=== PATIENT | female | born 1985 | race American Indian/Alaskan Native ===

== ENCOUNTER 2016-10-13 13:38 | Inpatient (IN) | payer BC ==
[2016-10-13] MEDS ORDERED: Acetaminophen 325 MG Tab PO PRN (16:09)
[2016-10-13] MEDS ORDERED: Sodium Chloride 0.9% 10 ML Syringe FLUSH PRN (16:09)
--- NOTE | 2016-10-13 16:30 | PCM.LDHP ---
L&D History of Present Illness - General Date of Service: 10/13/16 Admit Problem/Dx: Patient Status Order with Admit Dx/Problem 10/13/16 16:09 Patient Status [ADT] Routine Admission Diagnosis/Problem Admission Diagnosis/Problem complications Source of Information: Patient History Limitations: Reports: No Limitations - History of Present Illness Introduction:: 31-year-old (1 set of twins) LAN 11/13/16 at estimated gestational age 35 weeks 5 days presented to labor and delivery complaining of contractions and lower abdominal pain and discomfort and low back pain no dysuria or frequency urgency patient's had a history of 2 prior sections and and has had multiple successful VBACs after her first last was for second twin baby B, GB strep is not been performed will be collected when patient returns to clinic for follow-up patient had 05/10/2005 baby weighed 2 lbs. 6 oz. emergency adopted to her sister on 10/29/2005 miscarriage at 5 weeks on 12/01/2009 41 weeks estimated gestational age normal spontaneous vaginal delivery on 01/22/1439 weeks 6 days normal spontaneous vaginal delivery on 12/23/2014 vaginal delivery at 36 weeks twin a twin B was section for distress Blood type A positive antibody screen negative, CBC hemoglobin 13.0/36.6 platelets 232,000 on 04/19/2016 negative Pap test negative HIV rubella immune GC chlamydia negative hemoglobin hematocrit 11.7/35.3 platelets 241,005/10/2016 Patient is an [place] because of distance to travel and threatened labor patient will be placed on observation status and given by mouth hydration nonstress test biophysical profile and continuous monitoring and reevaluation as indicated discussed plans with patient will also order Procardia 10 mg by mouth every 6 hours and at bedtime 2100 hrs. morphine 10 mg IM with Vistaril (hydroxyzine) 50 mg IM NST reactive Timing/Duration: Reports: hour(s): Location, : Reports: Abdomen, Lower back Severity: Moderate Pain Score: 6 Improves with: Reports: None Worsens with: Reports: None - Related Data Allergies/Adverse Reactions: Allergies Allergy/AdvReac Type Severity Reaction Status Date / Time latex Allergy Hives Verified 01/16/14 18:56 Home Medications: Home Meds Ferrous Sulfate [Slow Fe] 1 tab PO DAILY 01/21/14 [History] Pnv with Ca,No.71/Iron/Fa [ Vitamin Tablet] 1 each PO DAILY 01/21/14 [ History] Acetaminophen [Tylenol] 650 mg PO Q4H PRN #30 tablet 01/24/14 [Rx] Docusate Sodium [Colace] 100 mg PO BID PRN #20 cap 01/24/14 [Rx] Ibuprofen [Motrin] 600 mg PO Q4H PRN #30 tablet 01/24/14 [Rx] Lanolin [Lansinoh HPA] 1 applic TOP ASDIRECTED PRN #1 crm 01/24/14 [Rx] 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: Reports: , Other (See Below) (History of abnormal Pap in the past repeats normal, history of ovarian cyst history of with first ) : 6 Para: 4 (4115 (1 set twins)) LMP (Approximate): Other (See Below) - Past Surgical History Head Surgeries/Procedures: Reports: None HEENT Surgical History: Reports: Oral Surgery (2008) Cardiovascular Surgical History: Reports: None Respiratory Surgical History: Reports: None GI Surgical History: Reports: None Female Surgical History: Reports: Section (x2) Male Surgical History: Reports: None Endocrine Surgical History: Reports: None Neurological Surgical History: Reports: None Musculoskeletal Surgical History: Reports: None Oncologic Surgical History: Reports: None Dermatological Surgical History: Reports: None Social & Family History - Tobacco Use Smoking Status *Q: Never Smoker Second Hand Smoke Exposure: Yes - Alcohol Use Days Per Week of Alcohol Use: 0 - Recreational Drug Use Recreational Drug Use: No H&P Review of Systems - Review of Systems: Review Of Systems: See Below General: Reports: No Symptoms HEENT: Reports: No Symptoms Pulmonary: Reports: No Symptoms Cardiovascular: Reports: No Symptoms Gastrointestinal: Reports: No Symptoms Genitourinary: Reports: No Symptoms Musculoskeletal: Reports: No Symptoms Skin: Reports: No Symptoms Psychiatric: Reports: No Symptoms Neurological: Reports: No Symptoms Hematologic/Lymphatic: Reports: No Symptoms Immunologic: Reports: No Symptoms L&D Exam - Exam Exam: See Below - OB Specific Fundal Height In cm: 35 Contraction Duration (sec): 60 Contraction Frequency (min): 10 Contraction Intensity: Mild to Moderate Movement: Active Heart Tones: Present Heart Tones per Min: 142 Heart Rate (FHR) Variability: Moderate (6-25 bmp) Presentation: Vertex - Perez Score Perez Score Cervix Position: Posterior Perez Score Consistency: Soft Perez Score Effacement: 51-70% Perez Score Dilation: 1-2 cm Perez Score 's Station: -1 ,0 Perez Score Total: 7 - Exam General: Alert, Oriented HEENT: Mucosa Moist & [place] Neck: Supple, Trachea Midline Lungs: Clear to Auscultation, Normal Respiratory Effort Cardiovascular: Regular Rate, Regular Rhythm Abdomen: Normal Bowel Sounds, Soft Extremities: Normal Inspection Skin: Warm, Dry, Intact Psychiatric: Alert, Normal Affect, Normal Mood - Problem List (1) 35 weeks gestation of SNOMED Code(s): 91566606 ICD Code: Z3A.35 - 35 WEEKS GESTATION OF Status: Acute Current Visit: Yes (2) Previous delivery affecting , antepartum SNOMED Code(s): 514600906, 228777476 ICD Code: O34.219 - MATERNAL CARE FOR UNSP TYPE SCAR FROM PREVIOUS DEL Status: Acute Current Visit: Yes (3) contractions SNOMED Code(s): 293375882 ICD Code: O47.9 - FALSE LABOR, UNSPECIFIED Status: Acute Current Visit: Yes Problem List Initiated/Reviewed/Updated: No Orders Last 24hrs: Active Orders 24 hr Category Date Time Status Patient Status [ADT] Routine ADT 10/13/16 16:09 Ordered Bedrest Bathroom Privileges [RC] ASDIRECTED Care 10/13/16 16:09 Ordered Heart Tones [RC] CONTINUOUS Care 10/13/16 16:11 Ordered Non Stress Test [RC] PER UNIT ROUTINE Care 10/13/16 16:09 Ordered Height and Weight [RC] UPON Care 10/13/16 16:09 Ordered Intake and Output [RC] QSHIFT Care 10/13/16 16:12 Ordered Notify Provider [RC] PRN Care 10/13/16 16:09 Ordered Vital Signs [RC] PER UNIT ROUTINE Care 10/13/16 16:09 Ordered Regular Diet [DIET] Diet 10/13/16 Dinner Ordered BPP wo NST [US] Routine Exams 10/13/16 16:09 Ordered CBC WITH AUTO DIFF [HEME] Stat Lab 10/13/16 16:09 Ordered CULTURE URINE [RM] Stat Lab 10/13/16 16:09 Uncollected TYPE AND SCREEN [BBK] Stat Lab 10/13/16 16:09 Ordered UA W/MICROSCOPIC [URIN] Stat Lab 10/13/16 16:09 Uncollected Acetaminophen [Tylenol] Med 10/13/16 16:09 Ordered 650 mg PO Q4H PRN NIFEdipine [Procardia] Med 10/13/16 16:15 Ordered 10 mg PO Q6H Sodium Chloride 0.9% [Saline Flush] Med 10/13/16 16:09 Ordered 10 ml FLUSH ASDIRECTED PRN Saline Lock Insert [OM.PC] Urgent Oth 10/13/16 16:09 Ordered Telemetry Monitoring [WOMSER] Per Unit Routine Oth 10/13/16 16:09 Ordered Resuscitation Status Routine Resus Stat 10/13/16 16:09 Ordered Medication Orders Acetaminophen (Tylenol) 650 mg PO Q4H PRN PRN Reason: mild pain and fever Nifedipine (Procardia) 10 mg PO Q6H [place] Sodium Chloride (Saline Flush) 10 ml FLUSH ASDIRECTED PRN PRN Reason: Keep Vein Open Assessment/Plan Comment:: Observation status By mouth hydration Biophysical profile Nonstress test Observation overnight and reevaluation as indicated Procardia 10 mg by mouth every 6 hours Morphine 10 mg/Vistaril 50 mg IM 1 at 2100 hrs.
[2016-10-13] MEDS: NIFEdipine 10 MG Cap PO SCH ×2 (16:38→22:50)
[2016-10-13] MEDS ORDERED: hydrOXYzine HCl 25 MG/ML SDV IM ONE (21:00)
[2016-10-13] MEDS ORDERED: Morphine 10 MG/ML Syringe IM ONE (21:00)
[2016-10-13] MEDS ORDERED: Calcium Carbonate 500 MG Tab.Chew PO PRN (23:51)
[2016-10-14] MEDS: Lactated Ringers 1,000 ML IV SCH ×2 (01:30→03:50)
[2016-10-14] MEDS: NIFEdipine 10 MG Cap PO SCH ×3 (04:15→22:20)
[2016-10-14] MEDS ORDERED: Nalbuphine 20 MG/1 ML Amp IVPUSH PRN (08:18)
[2016-10-14] MEDS ORDERED: Ondansetron 4 MG/2 ML SDV IVPUSH PRN (08:18)
[2016-10-14] MEDS ORDERED: Lactated Ringers 1,000 ML IV SCH (08:30)
[2016-10-14] MEDS ORDERED: Oxytocin/Lactated Ringers 10 UNIT/1,000 ML BAG IV SCH ×2 (08:30→14:15)
[2016-10-14] MEDS ORDERED: Ampicillin 2 GM in Sodium Chloride 0.9% 100 ML IV ONE (08:30)
[2016-10-14] MEDS ORDERED: Sodium Chloride 0.9% 200 ML ONE (08:39)
[2016-10-14] MEDS: Ampicillin 1 GM in Sodium Chloride 0.9% 100 ML IV SCH ×4 (08:46→22:21)
--- NOTE | 2016-10-14 10:53 | US ---
Biophysical profile: Multiple real-time images were obtained transabdominally. Comparison: No previous study. Dates: LMP: LMP given as 02/08/16, LAN 11/14/16, gestational age 35 weeks 3 days Current ultrasound: LAN 11/14/16, gestational age 35 weeks 3 days presentation: Cephalic Placenta: Right lateral Amniotic fluid: SERGIO 21.68 cm Measurements: BPD: 8.68 cm - 35 weeks 1 day Head circumference: 31.58 cm - 35 weeks 4 days Abdominal circumference: 31.42 cm - 35 weeks 3 days Femur length: 6.84 cm - 35 weeks 1 day Estimated weight: 263 g (5 lbs. 13 oz.), estimated weight at the 44th percentile for age by ultrasound Heart rate: 152 bpm Cervical length: 3.5 cm Biophysical profile: movement 2, breathing movement 2, tone 2, amniotic fluid volume 2 Impression: 1. Single intrauterine fetus currently cephalic in presentation. Dates as noted above. 2. Amniotic fluid volume at the upper limits of normal with SERGIO of 21.68 cm. 3. 8 out of 8 on biophysical profile. Diagnostic code #2 I agree with preliminary report issued by [facility] ([facility] report finalized on 10/13/16, 9:56 PM Central Time)
[2016-10-14] MEDS ORDERED: Lidocaine 1% 50 ML MDV INJECT ONE (12:00)
[2016-10-14] MEDS ORDERED: Methylergonovine 0.2 MG/1 ML Amp ONE (14:40)
[2016-10-14] MEDS ORDERED: Methylergonovine 0.2 MG/1 ML Amp IM STA (14:44)
[2016-10-14] MEDS ORDERED: Witch Hazel Medicated Pads 100/Jar TOP PRN (19:33)
[2016-10-14] MEDS ORDERED: Benzocaine/Menthol 20%-0.5% Spray 56 GM Canister TOP PRN (19:33)
[2016-10-14] MEDS ORDERED: Docusate Sodium 100 MG Cap PO PRN (19:33)
[2016-10-14] MEDS ORDERED: Acetaminophen 325 MG Tab PO PRN (19:33)
[2016-10-14] MEDS ORDERED: Lanolin 100% Cream 7 GM Tube TOP PRN (19:33)
--- NOTE | 2016-10-14 21:12 | PCM.SN ---
- Free Text/Narrative Note: Melinda is a 31-year-old multigravida female at 3 5-6/7 weeks gestational agewho was admitted the night before delivery with complaints of back pain, contractions and a small amount of vaginal bleeding. In retrospect patient was in early labor. She progressed to 6 cm with very irregular contractions occurring every 10-14 minutes. At that time decision was made to proceed with rupture membranes augmentation and delivery of the baby.she has a history of 2 sections and 3 vaginal deliveries. She wished to proceed with . Discussions were held with her as to the risks, benefits and follow-up of both C -section and . She wished to proceed and signed a consent for . Patient progressed to complete by about 1430 hrs. She delivered a baby at that time weighing 3020 g (6 pounds 10.5 ounces), was 19-1/2 inches in length and had Apgars of 8 and 9. Baby delivered in occiput anterior position, was a male infant and was placed on mom's abdomen. Cord was clamped 2 and cut by the baby' s father. The perineum was intact. As stated blood loss is 100 mL. She plans to breast- feed. Condition: Good
[2016-10-15] MEDS: Ibuprofen 600 MG Tab PO PRN ×2 (01:51→20:35)
--- NOTE | 2016-10-15 09:51 | PCM.SN ---
- Free Text/Narrative Note: day one: Patient is doing well. Has minimal lochia, is voiding well. Nursing is going fine. She is ambulating well. Vital signs are stable. Patient is afebrile. Abdomen soft, uterus is below the umbilicus 2 cm, firm with nursing. Legs nontender. Minimal edema. Assessment/plan: Post for an day 1 good recovery. baby is doing well. Home tomorrow.
--- NOTE | 2016-10-16 07:07 | PCM.DCSUM1 ---
Discharge Summary - Hospital Course Free Text/Narrative:: Melinda is a 31-year-old multigravida female at 3 5-6/7 weeks gestational agewho was admitted the night before delivery with complaints of back pain, contractions and a small amount of vaginal bleeding. In retrospect patient was in early labor. She progressed to 6 cm with very irregular contractions occurring every 10-14 minutes. At that time decision was made to proceed with rupture membranes augmentation and delivery of the baby.she has a history of 2 sections and 3 vaginal deliveries. She wished to proceed with . Discussions were held with her as to the risks, benefits and follow-up of both C -section and . She wished to proceed and signed a consent for . Patient progressed to complete by about 1430 hrs. She delivered a baby at that time weighing 3020 g (6 pounds 10.5 ounces), was 19-1/2 inches in length and had Apgars of 8 and 9. Baby delivered in occiput anterior position, was a male and was placed on mom's abdomen. Cord was clamped 2 and cut by the baby' s father. The perineum was intact. As stated blood loss is 100 mL. She plans to breast- feed. patient is done well. She is nursing without problems, voiding without concern. She is ambulating well and has minimal lochia. She is desiring to be discharged home. - Discharge Data Discharge Date: 10/16/16 Discharge Disposition: DC/Tfer to [facility] Condition: Good - Patient Instructions Diet: Regular Diet as Tolerated (High-fiber, nursing diet was increased calories and calcium.) Activity: As Tolerated (No intercourse or tampons until bleeding resolves) Driving: May Drive Today Showering/Bathing: May Shower (May take a bath) Notify Provider of: Fever, Increased Pain, Swelling and Redness, Nausea and/or Vomiting - Discharge Plan Home Medications: Home Meds Ferrous Sulfate [Slow Fe] 1 tab PO DAILY 01/21/14 [History] Pnv with Ca,No.71/Iron/Fa [ Vitamin Tablet] 1 each PO DAILY 01/21/14 [ History] Ibuprofen [IJD: Ibuprofen] 600 mg PO Q4H PRN #30 tablet 10/16/16 [Rx] Referrals: Mitch Prajapati MD [Primary Care Provider] - ([facility] - Discharge Summary/Plan Comment DC Time >30 min.: No Discharge Summary/Plan Comment: Discharge instructions: 1. Discharge home 2. Regular, high fiber, nursing diet with increased calories and calcium as recommended. 3. Activity and follow-up discussed in detail with patient. 4. Precautions given concern increased pain, bleeding, temperature, signs/ symptoms of DVT/PE. 5. Occasions per home medication was printed, discussed with and given to the patient. 6. Return to clinic, Dr. Prajapati, 6 weeks, [facility]. Diagnosis: 36 week intrauterine , livered Condition: Good - Patient Data Vitals - Most Recent: Last Vital Signs Temp 36.9 C 10/16/16 06:06 Pulse 70 10/16/16 06:06 Resp 12 10/16/16 06:06 BP 98/58 L 10/16/16 06:06 Pulse Ox 98 10/16/16 06:06 Weight - Most Recent: 177.7 kg I&O - Last 24 hours: Intake & Output 10/15/16 10/16/16 10/16/16 22:59 06:59 14:59 Intake Total 180 Balance 180 Lab Results - Last 24 hrs: Laboratory Results - last 24 hr 10/14/16 10/15/16 Range/Units 08:30 18:10 WBC 8.79 (3.98-10.04) K/mm3 RBC 3.70 L (3.98-5.22) M/mm3 Hgb 11.8 (11.2-15.7) gm/L Hct 36.1 (34.1-44.9) % MCV 97.6 H (79.4-94.8) fl MCH 31.9 (25.6-32.2) pg MCHC 32.7 (32.2-35.5) g/dl RDW Std Deviation 45.9 (36.4-46.3) fL Plt Count 184 (182-369) K/mm3 MPV 9.4 (9.4-12.3) fl Group B Strep (PCR) Negative (NEGATIVE) [place] Results - Last 24 hrs: Microbiology 10/13/16 17:20 Urine Culture - Final Urine, Clean Catch MIXED KYA SUGGESTIVE OF CONTAMINATION. Med Orders - Current: Current Medications Acetaminophen (Tylenol) 650 mg PO Q4H PRN PRN Reason: mild pain or fever Benzocaine/Menthol (Dermoplast Pain Relief [place]) 0 gm TOP ASDIRECTED PRN PRN Reason: Perineal Comfort Measure Docusate Sodium (Colace) 100 mg PO BID PRN PRN Reason: Constipation Emollient Ointment (Lansinoh Hpa) 0 gm TOP ASDIRECTED PRN PRN Reason: Sore Nipples Ibuprofen (Motrin) 600 mg PO Q4H PRN PRN Reason: Mild pain or fever Last Admin: 10/15/16 20:35 Dose: 600 mg Witch [place] (Tucks) 1 pad TOP ASDIRECTED PRN PRN Reason: Hemorrhoid pain Discontinued Medications Acetaminophen (Tylenol) 650 mg PO Q4H PRN PRN Reason: mild pain and fever Calcium Carbonate/Glycine (Tums) 500 mg PO Q2H PRN PRN Reason: Indigestion Last Admin: 10/14/16 00:06 Dose: 500 mg Hydroxyzine HCl (Vistaril) 50 mg IM ONETIME ONE Stop: 10/13/16 21:01 Last Admin: 10/13/16 21:19 Dose: 50 mg Lactated Ringer's (Ringers, Lactated) 1,000 mls @ 125 mls/hr IV ASDIRECTED [facility] Last Admin: 10/14/16 03:50 Dose: 125 mls/hr Lactated Ringer's (Ringers, Lactated) 1,000 mls @ 100 mls/hr IV ASDIRECTED [facility] Ampicillin Sodium 2 gm/ Sodium (Chloride) 100 mls @ 200 mls/hr IV ONETIME ONE Stop: 10/14/16 08:59 Last Admin: 10/14/16 11:32 Dose: Not Given Oxytocin/Lactated Ringer's (Pitocin In Lr 10 Units/1,000 Ml) 10 unit in 1,000 mls @ 500 mls/hr IV TITRATE [facility] Last Admin: 10/14/16 14:33 Dose: 500 mls/hr Ampicillin Sodium 1 gm/ Sodium (Chloride) 100 mls @ 200 mls/hr IV Q4H [facility] Last Admin: 10/14/16 22:21 Dose: Not Given Ampicillin Sodium 1 gm/ Sodium (Chloride) 100 mls @ 200 mls/hr IV Q15M [place] Stop: 10/14/16 09:00 Last Admin: 10/14/16 09:25 Dose: 200 mls/hr Sodium Chloride (Normal Saline) Confirm Administered Dose 200 mls @ as directed .ROUTE .ST-MED ONE Stop: 10/14/16 08:40 Last Admin: 10/14/16 09:42 Dose: Not Given Oxytocin/Lactated Ringer's (Pitocin In Lr 10 Units/1,000 Ml) 10 unit in 1,000 mls @ 12 mls/hr IV TITRATE [place]; 2 MUNITS/MIN PRN Reason: Protocol Last Admin: 10/14/16 14:05 Dose: 2 munits/min, 12 mls/hr Lidocaine HCl (Xylocaine 1%) 50 ml INJECT ONETIME ONE Stop: 10/14/16 12:01 Last Admin: 10/14/16 14:55 Dose: Not Given Methylergonovine Maleate (Methergine) Confirm Administered Dose 0.2 mg .ROUTE .ST-MED ONE Stop: 10/14/16 14:41 Last Admin: 10/14/16 14:56 Dose: Not Given Methylergonovine Maleate (Methergine) 0.2 mg IM NOW STA Stop: 10/14/16 14:45 Last Admin: 10/14/16 14:44 Dose: 0.2 mg Morphine Sulfate (Morphine) 10 mg IM ONETIME ONE Stop: 10/13/16 21:01 Last Admin: 10/13/16 21:18 Dose: 10 mg Nalbuphine HCl (Nubain) 10 mg IVPUSH Q2H PRN PRN Reason: Pain (moderate 4-6) Last Admin: 10/14/16 12:01 Dose: 10 mg Nifedipine (Procardia) 10 mg PO Q6H [place] Last Admin: 10/14/16 22:20 Dose: Not Given Ondansetron HCl (Zofran) 4 mg IVPUSH Q4H PRN PRN Reason: Nausea/Vomiting Sodium Chloride (Saline Flush) 10 ml FLUSH ASDIRECTED PRN PRN Reason: Keep Vein Open Last Admin: 10/13/16 19:20 Dose: 10 ml *Q Meaningful Use (DIS) - VTE *Q VTE Criteria *Q: - Stroke *Q Stroke Criteria *Q: - AMI *Q AMI Criteria *Q:
[2016-10-16] MEDS: Ibuprofen 600 MG Tab PO PRN (09:41)
[2016-10-16 10:21] VITALS: BP 93/56
== END 2016-10-16 10:55 | disposition critical access hospital (66) | DRG 560 ==
LOC: JD.OBCHECK 13:38 → JD.OB 13:45 → JD.OBCHECK 16:08 → JD.OB 16:09 → UNDOADMOB 16:09 → OBSVTOIN 10-14 14:30 → JD.OB 10-14 14:30
PROVIDERS: ADMIT Obstetrics & Gynecology; ATTEND Obstetrics & Gynecology
PROC: 10E0XZZ Delivery of Products of Conception, External Approach (ICD-10-PCS; principal; 2016-10-14)
PROC: 10907ZC Drainage of Amniotic Fluid, Therapeutic from Products of Conception, Via Natural or Artificial Opening (ICD-10-PCS; 2016-10-14)
DX: O60.14X0 Preterm labor third trimester with preterm delivery third trimester, not applicable or unspecified (principal); O34.211 Maternal care for low transverse scar from previous cesarean delivery; O69.81X0 Labor and delivery complicated by cord around neck, without compression, not applicable or unspecified; N85.8 Other specified noninflammatory disorders of uterus; Z3A.36 36 weeks gestation of pregnancy; Z37.0 Single live birth; Z91.040 Latex allergy status
CPT/HCPCS: 36415; 76816; 76819; 76819-26; 81001; 85025; 85027; 86850; 86900; 86901; 87086; 87653; A9270-GY; J0290; J2210; J2270; J2300; J2590; J3410; J7030; J7050; J7120

== ENCOUNTER 2022-03-01 07:02 | Inpatient (IN) | payer BC ==
[2022-03-01] MEDS ORDERED: Nalbuphine HCl 10 MG/ 1ML Amp IVPUSH PRN (07:06)
[2022-03-01] MEDS ORDERED: Ondansetron 4 MG/2 ML SDV IVPUSH PRN (07:06)
[2022-03-01] MEDS ORDERED: Sodium Chloride 0.9% 10 ML Syringe FLUSH PRN (07:06)
[2022-03-01] MEDS ORDERED: Oxytocin/Lactated Ringers 10 UNIT/1,000 ML BAG IV SCH ×2 (07:15→12:30)
[2022-03-01] MEDS ORDERED: Lactated Ringers 1,000 ML IV SCH (07:15)
[2022-03-01] MEDS ORDERED: Ampicillin 2 GM in Sodium Chloride 0.9% 100 ML IV ONE (07:30)
[2022-03-01] MEDS ORDERED: Sodium Chloride 0.9% 10 ML Syringe FLUSH SCH (09:00)
[2022-03-01] MEDS: Ampicillin 1 GM in Sodium Chloride 0.9% 100 ML IV SCH ×2 (11:54→15:47)
[2022-03-01] MEDS ORDERED: Docusate Sodium 100 MG Cap PO PRN (17:46)
[2022-03-01] MEDS ORDERED: Witch Hazel Medicated Pads 40/Jar TOP PRN (17:46)
[2022-03-01] MEDS ORDERED: Benzocaine/Menthol 20%-0.5% Spray 78 GM Cannister TOP PRN (17:46)
[2022-03-01] MEDS ORDERED: Methylergonovine 0.2 MG/1 ML Amp IM PRN (18:34)
[2022-03-01] MEDS: Ibuprofen 600 MG Tab PO PRN (21:01)
[2022-03-01] MEDS: Acetaminophen 325 MG Tab PO PRN (21:03)
[2022-03-02] MEDS ORDERED: Prenatal Multivitamin with Calcium/Folic Acid/Iron Tab PO SCH (09:00)
[2022-03-02] MEDS: Ibuprofen 600 MG Tab PO PRN ×2 (09:50→15:51)
[2022-03-02 15:08] VITALS: BP 95/48; PULSE 76
[2022-03-02] MEDS: Acetaminophen 325 MG Tab PO PRN (18:55)
== END 2022-03-02 19:10 | disposition home or self-care (01) | DRG 560 ==
LOC: JD.OB 07:02 → INTOOBSV 07:02 → JD.OB 17:22 → OBSVTOIN 17:22 → JD.OB 17:23
PROVIDERS: ADMIT Obstetrics & Gynecology; ATTEND Obstetrics & Gynecology
PROC: 10E0XZZ Delivery of Products of Conception, External Approach (ICD-10-PCS; principal; 2022-03-01)
PROC: 10907ZC Drainage of Amniotic Fluid, Therapeutic from Products of Conception, Via Natural or Artificial Opening (ICD-10-PCS; 2022-03-01)
DX: O34.211 Maternal care for low transverse scar from previous cesarean delivery (principal); Z37.0 Single live birth; Z3A.39 39 weeks gestation of pregnancy; O99.824 Streptococcus B carrier state complicating childbirth; O72.1 Other immediate postpartum hemorrhage; O98.32 Other infections with a predominantly sexual mode of transmission complicating childbirth; A60.09 Herpesviral infection of other urogenital tract
CPT/HCPCS: 36415; 59025; 59409; 85025; 86592; 86850; 86900; 86901; A9270-GY; J0290; J2210; J2300; J2590; J7120